=== PATIENT | male | born 1970 | race Hispanic/Latino ===

== ENCOUNTER 2017-02-08 21:07 | Emergency (ER) | payer OTHER ==
[~2017-02-08] VITALS: Ht 162.6 cm; Wt 89.8 kg
[2017-02-08 21:34] VITALS: BP 136/94
[2017-02-08] MEDS ORDERED: TRAMADOL HCL50 M1 PO (22:15)
[2017-02-08] MEDS ORDERED: AMOXICILLIN500 M3 PO (22:15)
--- NOTE | 2017-02-08 22:16 | ED THROAT/DENTAL COMPLAINT ---
History of Present Illness General Chief Complaint: General Adult Stated Complaint: PT HAS A CRACK TOOTH ON THE LT SIDE Source: patient Exam Limitations: no limitations Vital Signs & Intake/Output Vital Signs & Intake/Output Vital Signs Date Time Temp Pulse Resp B/P B/P Pulse O2 O2 Flow FiO2 Mean Ox Delivery Rate 02/08 2134 98.1 74 20 136/94 95 Room Air ED Intake and Output 02/09 0000 02/08 1200 Intake Total Output Total Balance Patient 198 lb Weight Weight Reported by Patient Measurement Method Allergies Coded Allergies: shellfish derived (Intermediate, HIVES 02/09/17) Reconcile Medications Amoxicillin 500 MG TABLET 1 TAB PO TID TOOTH FRACTURE Oxycodone HCl/Acetaminophen (Percocet 5-325 MG Tablet) 5 MG-325 MG TABLET 1 TAB PO TID PRN pain ten...[id number] Tramadol HCl 50 MG TABLET 1 TAB PO BIDP PRN PAIN Triage Note: TRIAGE: PT TO ER C/C DENTAL PAIN S/P CRACKED TOOTH FEW MONTHS AGO. STATES PAIN GOT WORSE YESTERDAY, UNKNOWN AGGRAVATING FACTOR. TRIED OLD PERCOCETS WITH NO RELIEF. Triage Nurses Notes Reviewed? yes HPI: This patient is a 47-year-old male who presented to the emergency department today for evaluation of tooth pain. The patient reported several months ago he cracked his tooth and was seen at a dentist. They did not do anything for him at that time. He reported that today he thinks that he ate something that cracked the tooth further. He reported swelling to the left side of his face and pain that gets up to a 9 out of 10, sharp, nonradiating. The pain has been constant since onset and worse with chewing. The patient denied any fevers or chills. No difficulty swallowing or shortness of breath. (ANNABELLE HARRIS PA-C) Past History Travel History Traveled to [place] past 21 day No Medical History Any Pertinent Medical History? 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 No (ANNABELLE HARRIS PA-C) Review of Systems Review of Systems Constitutional: Reports: no symptoms. EENTM: Reports: see HPI. Respiratory: Reports: no symptoms. Cardiovascular: Reports: no symptoms. GI: Reports: no symptoms. Musculoskeletal: Reports: no symptoms. Skin: Reports: no symptoms. Neurological/Psychological: Reports: no symptoms. All Other Systems: Reviewed and Negative (ANNABELLE HARRIS PA-C) Physical Exam Physical Exam Mouth/Throat: NO PHARYNGEAL INJECTION. nO OROPHARYNGEAL LESIONS OR EDEMA. dENTAL TENDERNESS OVER THE LEFT BACK MOLAR. fOR DENTITION. cARIOUS. mILD SURROUNDING GINGIVAL ERYTHEMA Comments: Well-developed well-nourished person in no acute distress HEENT: Head normocephalic, moist mucous membranes Neck: Supple, no lymphadenopathy Back: Normal gait Respiratory: No respiratory distress. Speaking in full sentences Extremities: No edema, full range of motion Neuro: Alert and oriented x3 Psych: Mood affect normal, normal memory normal judgment. Skin: Warm and dry, no rash on exposed skin Core Measures ACS in differential dx? No Severe Sepsis Present: No Septic Shock Present: No (ANNABELLE HARRIS PA-C) Progress Differential Diagnosis: aspirated tooth, carious tooth, epiglottitis, Ludwigs angina, meningitis, odontogenic abscess, maryan-tonsillar abscess, pharyngeal for. body, stomatitis/gingivitis, tooth fracture Plan of Care: This patient is a 47-year-old male who presented for evaluation of tooth pain. Tooth fracture noted. Mild swelling and erythema to the surrounding gingiva. This patient was instructed to follow-up with his dentist. Stable for outpatient antibiotic therapy. (ANNABELLE HARRIS PA-C) Departure Departure Disposition: HOME OR SELF CARE Condition: Stable Clinical Impression Primary Impression: Tooth fracture Qualifiers: Encounter type: initial encounter Referrals: PATIENT HAS NO PRIMARY CARE DR (PCP/Family) Additional Instructions: Take antibiotic as prescribed and for the full duration. Take vacation for pain as prescribed. Return for any worsening symptoms or concerns. Please follow-up with your dentist as discussed. Departure Forms: Customer Survey General Discharge Information Prescriptions: Current Visit Scripts Amoxicillin 1 TAB PO TID #30 TAB Tramadol HCl 1 TAB PO BIDP PRN PAIN #8 TAB (ANNABELLE HARRIS PA-C) PA/COMPUTER OPERATIONS ANALYST Co-Sign Statement Statement: ED Attending supervision documentation- [] I saw and evaluated the patient. I have also reviewed all the pertinent lab results and diagnostic results. I agree with the findings and the plan of care as documented in the PA's/COMPUTER OPERATIONS ANALYST's documentation. [x] I have reviewed the ED Record and agree with the PA's/COMPUTER OPERATIONS ANALYST's documentation. [] Additions or exceptions (if any) to the PAs/COMPUTER OPERATIONS ANALYST's note and plan are summarized below: [] (SHAUN MATIAS,SONJA Cox)
[2017-02-09] MEDS ORDERED: PERCOCET 5-3251 EACH PO (04:35)
== END 2017-02-08 22:19 ==
LOC: ERH 21:07
DX: S02.5XXA Fracture of tooth (traumatic), initial encounter for closed fracture (principal); X58.XXXA Exposure to other specified factors, initial encounter; Y92.9 Unspecified place or not applicable; Y93.9 Activity, unspecified

== ENCOUNTER 2017-02-09 03:28 | Emergency (ER) | payer OTHER ==
[~2017-02-09] VITALS: Ht 162.6 cm; Wt 89.8 kg
[~2017-02-09 03:28] MED LIST: AMOXICILLIN500 M3 PO; TRAMADOL HCL50 M1 PO
[2017-02-09 04:01] VITALS: BP 170/109
--- NOTE | 2017-02-09 04:34 | ED THROAT/DENTAL COMPLAINT ---
History of Present Illness General Chief Complaint: Sore Throat, Dental Pain Stated Complaint: MOUTH PAIN; SWELLING Source: patient Exam Limitations: no limitations Vital Signs & Intake/Output Vital Signs & Intake/Output Vital Signs Date Time Temp Pulse Resp B/P B/P Pulse O2 O2 Flow FiO2 Mean Ox Delivery Rate 02/09 0404 94 Room Air 02/09 0401 77 18 170/109 94 Room Air Allergies Coded Allergies: shellfish derived (Intermediate, HIVES 02/09/17) Reconcile Medications Amoxicillin 500 MG TABLET 1 TAB PO TID TOOTH FRACTURE Oxycodone HCl/Acetaminophen (Percocet 5-325 MG Tablet) 5 MG-325 MG TABLET 1 TAB PO TID PRN pain ten...[id number] Tramadol HCl 50 MG TABLET 1 TAB PO BIDP PRN PAIN Triage Note: TRIAGE: PATIENT TO ER FROM HOME REPORTS L TOOTH PAIN "FEW MONTHS," SEEN HERE YESTERDAY FOR SAME, GIVEN ABX AND TRAMADOL, TAKING W/O RELIEF. SWELLING NOTEDS TO L CHEEK. Triage Nurses Notes Reviewed? yes Onset: Gradual Duration: hour(s): Timing: single episode today Injury Environment: home Severity: mild, moderate Modifying Factors: Improves With: rest. Associated Symptoms: swelling HPI: 47 yo gentleman presented yesterday for left upper dental abscess. He notes that he took two tabs of the amoxicillin and awoke with left upper dental swelling and pain. He notes that he is able to eat Past History Travel History Traveled to [place] past 21 day No Medical History Any Pertinent Medical History? 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 No Review of Systems Review of Systems Constitutional: Reports: no symptoms. EENTM: Reports: no symptoms. Respiratory: Reports: no symptoms. Cardiovascular: Reports: no symptoms. GI: Reports: no symptoms. Genitourinary: Reports: no symptoms. Musculoskeletal: Reports: no symptoms. Skin: Reports: no symptoms. Neurological/Psychological: Reports: no symptoms. Hematologic/Endocrine: Reports: no symptoms. Immunologic/Allergic: Reports: no symptoms. All Other Systems: Reviewed and Negative Physical Exam Physical Exam General Appearance: well developed/nourished, no apparent distress Head: atraumatic, normal appearance Eyes: Bilateral: normal appearance. Nose: normal inspection Mouth/Throat: left upper gum with tenderness to palpation and mild/moderate swelling, poor dentition Neck: normal inspection, supple, full range of motion Cardiovascular/Respiratory: normal breath sounds Gastrointestinal: organmegaly Back: normal inspection Neurologic/Psych: no motor/sensory deficits, awake, alert, oriented x 3 Skin: intact, normal color, warm/dry Core Measures ACS in differential dx? No Severe Sepsis Present: No Septic Shock Present: No Progress Differential Diagnosis: dental abscess vs gingivitis vs other. Plan of Care: pt has taken only 2 doses of amox... will intensify treatment to 2 tabs bid (not 1 tid).... encouraged pt to follow up with dentist later today... encouraged close follow up. Departure Departure Disposition: HOME OR SELF CARE Condition: Stable Clinical Impression Primary Impression: Dental abscess Referrals: PATIENT HAS NO PRIMARY CARE DR (PCP/Family) Departure Forms: Customer Survey General Discharge Information Prescriptions: Current Visit Scripts Oxycodone HCl/Acetaminophen (Percocet 5-325 MG Tablet) 1 TAB PO TID PRN pain #10 TAB ten...[id number]
[2017-02-09] MEDS ORDERED: PERCOCET 5-3251 EACH PO (04:35)
== END 2017-02-09 04:41 ==
LOC: ERH 03:28
DX: K04.7 Periapical abscess without sinus (principal)

== ENCOUNTER 2017-12-27 06:33 | Emergency (ER) | payer OTHER ==
[~2017-12-27] VITALS: Ht 175.3 cm; Wt 90.7 kg
[~2017-12-27 06:33] MED LIST changes: +PERCOCET 5-3251 EACH PO
--- NOTE | 2017-12-27 07:16 | ED GI/GU/ABDOMINAL COMPLAINT ---
History of Present Illness General Chief Complaint: Abdominal Pain/Flank Pain Stated Complaint: RIGHT SIDED BACK AND ABD PAIN X 2 HRS Source: patient Exam Limitations: no limitations Vital Signs & Intake/Output Vital Signs & Intake/Output Vital Signs Date Time Temp Pulse Resp B/P B/P Pulse O2 O2 Flow FiO2 Mean Ox Delivery Rate 12/27 0654 97.1 71 18 150/91 98 Room Air Allergies Coded Allergies: shellfish derived (Intermediate, HIVES 02/09/17) Reconcile Medications Amoxicillin 500 MG TABLET 1 TAB PO TID TOOTH FRACTURE Ibuprofen 600 MG TABLET 1 TAB PO TID PRN PAIN with food Ondansetron (Zofran Odt) 4 MG TAB.RAPDIS 1 TAB SL TID PRN NAUSEA Oxycodone HCl/Acetaminophen (Percocet 5-325 MG Tablet) 5 MG-325 MG TABLET 1 TAB PO TID PRN pain ten...[id number] Oxycodone HCl/Acetaminophen (Percocet 5-325 MG Tablet) 5 MG-325 MG TABLET 1-2 TAB PO Q6P PRN PAIN Tamsulosin HCl (Flomax) 0.4 MG CAP.ER.24H 1 CAP PO DAILY kidney stone Tramadol HCl 50 MG TABLET 1 TAB PO BIDP PRN PAIN Triage Note: 47YO MALE TO TRIAGE W/CO R FLANK PAIN THAT RADIATES TO R GROIN THAT AWOKE HIM 2 HR AGO. STATES URINATION MAKES PAIN WORSEN. Triage Nurses Notes Reviewed? yes HPI: Patient got home from work last night and noticed pain in his right flank. The pain is cramping and colicky in nature. The pain began to radiate around towards his right lower quadrant going towards his testicle. The pain increased to 10 out of 10. Patient states she cannot find a position of comfort and at times he found himself just laying on the floor trying to help the pain. Positive nausea and vomiting. Positive diaphoresis. Patient states he was able to urinate a little bit still feels that there is more urine in there. He did not notice any hematuria. Past History Travel History Traveled to [place] past 21 day No Medical History Any Pertinent Medical History? 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 No Review of Systems Review of Systems Constitutional: Reports: no symptoms. EENTM: Reports: no symptoms. Respiratory: Reports: no symptoms. Cardiovascular: Reports: no symptoms. GI: Reports: see HPI, abdominal pain, nausea, vomiting. Genitourinary: Reports: see HPI. Musculoskeletal: Reports: see HPI, back pain. Skin: Reports: no symptoms. Neurological/Psychological: Reports: no symptoms. Hematologic/Endocrine: Reports: no symptoms. Immunologic/Allergic: Reports: no symptoms. All Other Systems: Reviewed and Negative Physical Exam Physical Exam General Appearance: well developed/nourished, alert, awake, anxious, moderate distress Head: atraumatic, normal appearance Eyes: Bilateral: PERRL, EOMI. Ears, Nose, Throat, Mouth: hearing grossly normal, DRY MUCOSA Neck: normal inspection, supple, full range of motion Respiratory: normal breath sounds, chest non-tender, no respiratory distress, lungs clear Cardiovascular: regular rate/rhythm, normal peripheral pulses Gastrointestinal: normal bowel sounds, soft, non-tender, no organomegaly Back: normal range of motion, CVA tenderness (R) Extremities: normal range of motion Neurologic/Psych: no motor/sensory deficits, awake, alert, oriented x 3, normal gait, normal mood/affect Skin: intact, normal color, warm/dry Core Measures ACS in differential dx? No Sepsis Present: No Sepsis Focused Exam Completed? No Progress Differential Diagnosis: appendicitis, pyelonephritis, ureterolithiasis, urinary retention, UTI/pyelo Plan of Care: Orders Procedure Date/time Status URINALYSIS 12/27 0742 Complete Laboratory Tests 12/27/17 0851: Urine Color YEL, Urine Clarity CLDY H, Urine pH 7.5, Ur Specific [place] 1.015, Urine Protein TRACE H, Urine Ketones NEG, Urine Nitrite NEG, Urine Bilirubin NEG, Urine Urobilinogen 0.2, Ur Leukocyte Esterase NEG, Ur Microscopic SEDIMENT EXAMINED, Urine RBC >75 H, Urine Mucus FEW, Urine Hemoglobin LARGE H, Urine Glucose NEG Diagnostic Imaging: Viewed by Me: CT Scan. Discussed w/RAD: CT Scan. CXR Impression: PATIENT: NISREEN FARIAS PRESENT AGE: 47 PATIENT ACCOUNT NO: [id number] : 72 LOCATION: [facility] ORDERING PHYSICIAN: Omar Sales MD SERVICE DATE: 12/27/17 EXAM TYPE: CAT - CT ABD & PELVIS W/O IV CONTRAS EXAMINATION: CT ABDOMEN AND PELVIS WITHOUT CONTRAST CLINICAL INFORMATION: Right flank pain. Concern for urolithiasis. COMPARISON: None TECHNIQUE: Multidetector volumetric imaging was performed from the superior aspect of the liver through the pubic symphysis. Sagittal and coronal reformatted images were obtained on the technologist's workstation. DLP: 665.63 mGy-cm FINDINGS: LUNG BASES: The visualized lung bases are unremarkable. LIVER, GALLBLADDER, AND BILIARY TREE: The liver is normal in size, shape, and attenuation. No focal hepatic lesion or biliary ductal dilatation is present. The gallbladder is unremarkable with no evidence of radiopaque gallstones, gallbladder wall thickening, or obvious pericholecystic inflammatory changes. PANCREAS: Unremarkable. SPLEEN: Unremarkable. ADRENAL GLANDS: Unremarkable. KIDNEYS AND URETERS: An obstructing calculus in the distal right ureter approximately 2 cm above the ureterovesical junction measures 0.3 cm. There is associated mild hydroureteronephrosis. There is mild perinephric stranding of both kidneys. A nonobstructing calculus in the upper pole of the right kidney measures 0.4 cm. A nonobstructing calculus in the lower pole the left kidney measures 0.4 cm. No focal parenchymal lesion is seen. BLADDER: The bladder is decompressed an unremarkable. GASTROINTESTINAL TRACT: The stomach and duodenum are unremarkable. No abnormality of the small bowel or mesentery is demonstrated. The colon is unremarkable. The appendix is normal. ABDOMINAL WALL: There are bilateral fat-containing inguinal hernias. Small fat-containing umbilical hernia. LYMPH NODES: Normal. VASCULAR: Limited assessment without contrast. No abnormality is seen. PELVIC VISCERA: Unremarkable. OSSEOUS STRUCTURES: Unremarkable. IMPRESSION: 1. 0.3 cm obstructing calculus distal right ureter with mild hydroureteronephrosis. 2. Nonobstructing calculi both kidneys. DICTATED BY: Kenny Solomon MD DATE/TIME DICTATED:12/27/17808 PROBATION AGENT:PAUL DATE/TIME TRANSCRIBED:12/27/17808 CONFIDENTIAL, DO NOT COPY WITHOUT APPROPRIATE AUTHORIZATION. <Electronically signed in Other Vendor System> SIGNED BY: Kenny Solomon MD 12/27/17 0829 Initial ED EKG: none Comments: Pain is decreased to 2 out of 10 after IV Toradol and the nausea is resolved after IV Zofran. Patient continues to feel much better. He states the pain is down to 1 out of 10. Patient hasn't been updated on CAT scan results. Awaiting urinalysis. Questions have been answered. Departure Departure Disposition: HOME OR SELF CARE Condition: Stable Clinical Impression Primary Impression: Kidney stone Referrals: Riley Rivera MD Patient Has No Primary Care Dr (PCP/Family) Additional Instructions: Follow up with Dr. Rivera take flomax daily take zofran as needed for nausea take Motrin as needed for pain take Percocet as needed for severe pain return if symptoms worsen, you develop fevers or for any concerns Departure Forms: Customer Survey General Discharge Information Prescriptions: Current Visit Scripts Ondansetron (Zofran Odt) 1 TAB SL TID PRN NAUSEA #10 TAB Oxycodone HCl/Acetaminophen (Percocet 5-325 MG Tablet) 1-2 TAB PO Q6P PRN PAIN #20 TAB Tamsulosin HCl (Flomax) 1 CAP PO DAILY #14 CAP Ibuprofen 1 TAB PO TID PRN PAIN #20 TAB with food
--- NOTE | 2017-12-27 08:29 | CT SCAN REPORT ---
EXAMINATION: CT ABDOMEN AND PELVIS WITHOUT CONTRAST CLINICAL INFORMATION: Right flank pain. Concern for urolithiasis. COMPARISON: None TECHNIQUE: Multidetector volumetric imaging was performed from the superior aspect of the liver through the pubic symphysis. Sagittal and coronal reformatted images were obtained on the technologist's workstation. DLP: 665.63 mGy-cm FINDINGS: LUNG BASES: The visualized lung bases are unremarkable. LIVER, GALLBLADDER, AND BILIARY TREE: The liver is normal in size, shape, and attenuation. No focal hepatic lesion or biliary ductal dilatation is present. The gallbladder is unremarkable with no evidence of radiopaque gallstones, gallbladder wall thickening, or obvious pericholecystic inflammatory changes. PANCREAS: Unremarkable. SPLEEN: Unremarkable. ADRENAL GLANDS: Unremarkable. KIDNEYS AND URETERS: An obstructing calculus in the distal right ureter approximately 2 cm above the ureterovesical junction measures 0.3 cm. There is associated mild hydroureteronephrosis. There is mild perinephric stranding of both kidneys. A nonobstructing calculus in the upper pole of the right kidney measures 0.4 cm. A nonobstructing calculus in the lower pole the left kidney measures 0.4 cm. No focal parenchymal lesion is seen. BLADDER: The bladder is decompressed an unremarkable. GASTROINTESTINAL TRACT: The stomach and duodenum are unremarkable. No abnormality of the small bowel or mesentery is demonstrated. The colon is unremarkable. The appendix is normal. ABDOMINAL WALL: There are bilateral fat-containing inguinal hernias. Small fat-containing umbilical hernia. LYMPH NODES: Normal. VASCULAR: Limited assessment without contrast. No abnormality is seen. PELVIC VISCERA: Unremarkable. OSSEOUS STRUCTURES: Unremarkable. IMPRESSION: 1. 0.3 cm obstructing calculus distal right ureter with mild hydroureteronephrosis. 2. Nonobstructing calculi both kidneys.
[2017-12-27] MEDS ORDERED: ZOFRAN ODT4 M1 SL (08:51)
[2017-12-27] MEDS ORDERED: PERCOCET 5-3251 EACH PO (08:51)
[2017-12-27] MEDS ORDERED: IBUPROFEN600 M1 PO (08:51)
[2017-12-27] MEDS ORDERED: FLOMAX0.4 M1 PO (08:51)
[2017-12-27 10:00] VITALS: BP 132/74
== END 2017-12-27 10:02 ==
LOC: ERH 06:33
DX: N20.0 Calculus of kidney (principal)
CPT/HCPCS: 74176; 81001; 96374; 96375; J1885; J2405